=== PATIENT | female | born 1975 | race Caucasian/White ===

== ENCOUNTER → 2024-09-26 | Day surgery (SDC) | payer OTHER ==
[~2024-09-26] MED LIST: CITALOPRAM HBR20 MG PO; CRESTOR40 MG PO; FAMOTIDINE20 MG PO; FENTANYL CITRATE/PF 100MCG/2 ML INJ ONE; LEVOTHYROXINE50 MCG PO; LIDOCAINE HCL 2% LOCAL INJ 5 ML SDV VIAL INJ ONE; OZEMPIC2 MG/0.75 SC; PROPOFOL IV EMULSION 50 ML IV ONE; SYNJARDY XR 121 EACH PO; TRESIBA FL100 UNIT/1 PO; VITAMIN D250 MCG PO
[2024-09-26] MEDS: LACTATED RINGER'S 1,000 ML ONE (08:58)
[2024-09-26 11:03] VITALS: TEMP 97.9
[2024-09-26 11:15] VITALS: BP 101/74; PULSE 79; RESP 16; O2SAT 98
== END | disposition home or self-care (01) ==
LOC: OR 08:13
PROVIDERS: ATTEND Internal Medicine Gastroenterology
DX: Z12.11 Encounter for screening for malignant neoplasm of colon (principal); D12.0 Benign neoplasm of cecum; D12.3 Benign neoplasm of transverse colon; K29.50 Unspecified chronic gastritis without bleeding; K22.89 Other specified disease of esophagus; K21.9 Gastro-esophageal reflux disease without esophagitis; K62.5 Hemorrhage of anus and rectum; K62.89 Other specified diseases of anus and rectum; K64.4 Residual hemorrhoidal skin tags; K64.8 Other hemorrhoids; A07.1 Giardiasis [lambliasis]; K76.0 Fatty (change of) liver, not elsewhere classified; K76.89 Other specified diseases of liver; K82.4 Cholesterolosis of gallbladder; F41.9 Anxiety disorder, unspecified; E11.9 Type 2 diabetes mellitus without complications; E03.9 Hypothyroidism, unspecified; R16.0 Hepatomegaly, not elsewhere classified; N20.0 Calculus of kidney; N28.9 Disorder of kidney and ureter, unspecified; R93.89 Abnormal findings on diagnostic imaging of other specified body structures; R03.0 Elevated blood-pressure reading, without diagnosis of hypertension; R93.429 Abnormal radiologic findings on diagnostic imaging of unspecified kidney; Z01.810 Encounter for preprocedural cardiovascular examination; Z79.84 Long term (current) use of oral hypoglycemic drugs; Z79.85 Long-term (current) use of injectable non-insulin antidiabetic drugs; Z79.4 Long term (current) use of insulin; Z79.1 Long term (current) use of non-steroidal anti-inflammatories (NSAID); Z79.899 Other long term (current) drug therapy; Z68.31 Body mass index [BMI] 31.0-31.9, adult; Z87.440 Personal history of urinary (tract) infections
CPT/HCPCS: 43239; 45384; 45385; 93005; J2003; J2704; J3010; J7121